=== PATIENT | male | born 1940 | race Caucasian/White ===

== ENCOUNTER 2019-05-06 15:11 | Inpatient (IN) | payer MEDICARE, BC ==
[~2019-05-06] VITALS: Ht 172.7 cm; Wt 84.4 kg
[2019-05-06 16:08] LABS: BASOPHILS % (AUTO) 0.4 % (0.0-2.0); EOSINOPHILS # (AUTO) 0.1 K/uL (0.0-0.7); HEMATOCRIT 35.9 % (36.7-47.1); HEMOGLOBIN 12.2 g/dL (12.5-16.3); LYMPHOCYTES # (AUTO) 0.6 K/uL (20.0-40.0); LYMPHOCYTES % (AUTO) 8.7 % (20.5-51.5); MEAN CORPUSCULAR HEMOGLOBIN 31.2 uug (23.8-33.4); MEAN CORPUSCULAR HGB CONC 34 g/dL (32.5-36.3); MEAN CORPUSCULAR VOLUME 92.2 fL (73.0-96.2); MONOCYTES # (AUTO) 0.5 K/uL (2.0-10.0); MONOCYTES % (AUTO) 6.7 % (0.0-11.0); NEUTROPHILS # (AUTO) 5.6 K/uL (1.8-8.9); NEUTROPHILS % (AUTO) 83.2 % (38.5-71.5); PLATELET COUNT (AUTO) 177 K/uL (152-348); WHITE BLOOD COUNT (AUTO) 6.7 K/uL (3.6-10.2)
[2019-05-06 16:19] LABS: CARBON DIOXIDE 30 mmol/L (21-32); CHLORIDE 103 mmol/L (98-107); CREATININE 1.9 mg/dL (0.6-1.3); GLUCOSE 249 mg/dL (74-106); POTASSIUM 4.3 mmol/L (3.5-5.1); UREA NITROGEN, BLOOD 37 mg/dL (7-18)
[2019-05-06 16:24] LABS: ALANINE AMINOTRANSFERASE 32 U/L (16-63); ALKALINE PHOSPHATASE 127 U/L (50-136); ASPARTATE AMINOTRANSFERASE 23 U/L (15-37); BILIRUBIN,DIRECT 0.2 mg/dL (0.0-0.2); BILIRUBIN,TOTAL 1.1 mg/dL (0.2-1.0); TOTAL PROTEIN, SERUM 7.4 g/dL (6.4-8.2)
[2019-05-06 16:32] LABS: THYROID STIMULATING HORMONE 2.125 mIU/mL (0.358-3.740)
[2019-05-06] MEDS ORDERED: LIDOCAINE 2% (UROJET) 10 ML JELLY MM ONE ×2 (16:48→17:15)
[2019-05-06 16:51] LABS: ETHANOL < 3 MG/DL (0-0)
[2019-05-06 17:09] LABS: *BILIRUBIN,URIN NEGATIVE (NEGATIVE); *BLOOD, URINE 1+ (NEGATIVE); *CLARITY,URINE CLEAR (CLEAR); *COLOR,URINE YELLOW (YELLOW); *KETONES,URINE NEGATIVE (NEGATIVE); *UROBILINOGEN,URINE 0.2 E.U./dl (NORMAL); LEUKOCYTE ESTERASE ,URINE NEGATIVE (NEGATIVE); NITRITE, URINE NEGATIVE (NEGATIVE); PH,URINE 5.5 (5.0-8.0); UGLUCOSE 2+ (NEGATIVE)
[2019-05-06] MEDS ORDERED: LEVOFLOXACIN 750 MG TABLET PO ONE (17:15)
[2019-05-06] MEDS ORDERED: IV NORMAL SALINE 1000 ML BAG IV ONE (17:15)
[2019-05-06 17:18] LABS: WBC,URINE 0-3 /HPF (0-3)
[2019-05-06 17:19] LABS: MUCUS,URINE FEW /LPF (0-FEW)
[2019-05-06 17:24] LABS: *AMPHETAMINE, URINE NEGATIVE (NEGATIVE); *BARBITURATE, URINE NEGATIVE (NEGATIVE)
[2019-05-06 17:25] LABS: *CANNABINOID, URINE NEGATIVE (NEGATIVE); *COCCAINE, URINE NEGATIVE (NEGATIVE); *OPIATE, URINE NEGATIVE (NEGATIVE); *PHENCYCLIDINE SCREEN,URINE NEGATIVE (NEGATIVE)
[2019-05-06] MEDS ORDERED: LEVOFLOXACIN 750 MG TABLET ONE (17:29)
[2019-05-06] MEDS ORDERED: MAG HYDROX/AL HYDROX/SIMETH 30 ML LIQUID UDC PO PRN (20:00)
[2019-05-06] MEDS ORDERED: LORAZEPAM 0.5 MG TABLET PO PRN ×2 (20:00→22:45)
[2019-05-06] MEDS ORDERED: BLOOD SUGAR DIAGNOSTIC 1 EACH STRIP VI ONE (20:00)
[2019-05-06] MEDS ORDERED: MAGNESIUM HYDROXIDE 30 ML LIQUID UDC PO PRN ×2 (20:00→21:15)
[2019-05-06] MEDS ORDERED: TEMAZEPAM 7.5 MG CAPSULE PO PRN (20:00)
[2019-05-06 20:30] VITALS: BP 117/52
[2019-05-06] MEDS ORDERED: INSULIN LISPRO 1000 UNITS/10 ML VIAL(HUMALOG) SQ SCH (21:15)
[2019-05-06] MEDS ORDERED: GLUCOSE ORAL GEL 15 GM TUBE PO PRN (22:15)
[2019-05-06] MEDS: ZOLPIDEM 5 MG TABLET PO PRN (23:10)
[2019-05-07] MEDS ORDERED: DEXTROSE 50% 50 ML DISP.SYRIN IV PRN ×2 (04:00→13:15)
[2019-05-07] MEDS: BLOOD SUGAR DIAGNOSTIC 1 EACH STRIP VI SCH ×4 (06:38→20:08)
[2019-05-07 07:30] VITALS: BP 147/78
[2019-05-07] MEDS: PIOGLITAZONE HCL 15 MG TABLET PO SCH (09:01)
[2019-05-07] MEDS: FINASTERIDE 5 MG TABLET PO SCH (09:01)
[2019-05-07] MEDS: GLIMEPIRIDE 2 MG TABLET PO SCH (09:01)
[2019-05-07] MEDS: APIXABAN 5 MG TABLET PO SCH ×2 (09:03→17:25)
[2019-05-07] MEDS: LOSARTAN POTASSIUM 25 MG TABLET PO SCH (09:03)
[2019-05-07] MEDS: INSULIN REGULAR, HUMAN 300 UNIT/3 ML VIAL SQ PRN ×3 (09:05→17:27)
[2019-05-07 09:28] LABS: ALANINE AMINOTRANSFERASE 28 U/L (16-63); ALKALINE PHOSPHATASE 126 U/L (50-136); ASPARTATE AMINOTRANSFERASE 20 U/L (15-37); BILIRUBIN,TOTAL 1.1 mg/dL (0.2-1.0); CARBON DIOXIDE 26 mmol/L (21-32); CHLORIDE 103 mmol/L (98-107); CREATININE 1.6 mg/dL (0.6-1.3); GLUCOSE 229 mg/dL (74-106); POTASSIUM 4.5 mmol/L (3.5-5.1); TOTAL PROTEIN, SERUM 7.6 g/dL (6.4-8.2); UREA NITROGEN, BLOOD 32 mg/dL (7-18)
[2019-05-07] MEDS: ESCITALOPRAM OXALATE 10 MG TABLET PO SCH (12:47)
[2019-05-07 16:00] VITALS: BP 122/58
[2019-05-07] MEDS: INSULIN REGULAR, HUMAN 300 UNITS/3 ML VIAL SQ PRN (20:10)
[2019-05-07] MEDS: QUETIAPINE FUMARATE 25 MG TABLET PO SCH (20:15)
[2019-05-07] MEDS: TAMSULOSIN HCL 0.4 MG CAP.SR.24H PO SCH (20:15)
[2019-05-07 21:28] VITALS: BP 139/64
[2019-05-08] MEDS: BLOOD SUGAR DIAGNOSTIC 1 EACH STRIP VI SCH ×4 (06:32→20:15)
[2019-05-08 07:30] VITALS: BP 119/64
[2019-05-08] MEDS: LOSARTAN POTASSIUM 25 MG TABLET PO SCH (09:00)
[2019-05-08] MEDS: PIOGLITAZONE HCL 15 MG TABLET PO SCH (09:22)
[2019-05-08] MEDS: FINASTERIDE 5 MG TABLET PO SCH (09:23)
[2019-05-08] MEDS: ESCITALOPRAM OXALATE 10 MG TABLET PO SCH (09:23)
[2019-05-08] MEDS: APIXABAN 5 MG TABLET PO SCH ×2 (09:27→17:40)
[2019-05-08] MEDS: GLIMEPIRIDE 2 MG TABLET PO SCH (09:30)
[2019-05-08] MEDS: INSULIN REGULAR, HUMAN 300 UNIT/3 ML VIAL SQ PRN ×3 (10:12→17:43)
[2019-05-08] MEDS ORDERED: DEXTROSE 50% 50 ML DISP.SYRIN IV PRN (12:30)
[2019-05-08] MEDS ORDERED: INSULIN REGULAR, HUMAN 300 UNIT/3 ML VIAL SQ PRN (12:30)
[2019-05-08] MEDS ORDERED: BLOOD SUGAR DIAGNOSTIC 1 EACH STRIP VI SCH (16:30)
[2019-05-08 16:43] VITALS: BP 136/48
[2019-05-08] MEDS: TAMSULOSIN HCL 0.4 MG CAP.SR.24H PO SCH (20:05)
[2019-05-08] MEDS: QUETIAPINE FUMARATE 25 MG TABLET PO SCH (20:05)
[2019-05-08] MEDS: INSULIN REGULAR, HUMAN 300 UNITS/3 ML VIAL SQ PRN (20:19)
[2019-05-08 21:09] VITALS: BP 139/54
[2019-05-08] MEDS: ZOLPIDEM 5 MG TABLET PO PRN (22:43)
[2019-05-08] MEDS: LORAZEPAM 1 MG TABLET PO PRN (23:56)
[2019-05-09] MEDS: BLOOD SUGAR DIAGNOSTIC 1 EACH STRIP VI SCH ×4 (06:31→21:01)
[2019-05-09 07:30] VITALS: BP 137/59
[2019-05-09 07:35] LABS: BASOPHILS % (AUTO) 0.4 % (0.0-2.0); EOSINOPHILS # (AUTO) 0.1 K/uL (0.0-0.7); EOSINOPHILS % (AUTO) 1.1 % (0.0-7.0); HEMATOCRIT 34.4 % (36.7-47.1); LYMPHOCYTES # (AUTO) 1.1 K/uL (20.0-40.0); LYMPHOCYTES % (AUTO) 14.9 % (20.5-51.5); MEAN CORPUSCULAR HEMOGLOBIN 31.9 uug (23.8-33.4); MEAN CORPUSCULAR HGB CONC 35 g/dL (32.5-36.3); MEAN CORPUSCULAR VOLUME 91.5 fL (73.0-96.2); MONOCYTES # (AUTO) 0.6 K/uL (2.0-10.0); MONOCYTES % (AUTO) 7.8 % (0.0-11.0); NEUTROPHILS # (AUTO) 5.5 K/uL (1.8-8.9); NEUTROPHILS % (AUTO) 75.8 % (38.5-71.5); PLATELET COUNT (AUTO) 177 K/uL (152-348); RED BLOOD CELL COUNT(AUTO) 3.76 MIL/uL (4.06-5.63); WHITE BLOOD COUNT (AUTO) 7.2 K/uL (3.6-10.2)
[2019-05-09] MEDS: LORAZEPAM 1 MG TABLET PO PRN (07:44)
[2019-05-09 07:46] LABS: ALANINE AMINOTRANSFERASE 29 U/L (16-63); ALKALINE PHOSPHATASE 131 U/L (50-136); ASPARTATE AMINOTRANSFERASE 23 U/L (15-37); BILIRUBIN,TOTAL 1.2 mg/dL (0.2-1.0); CARBON DIOXIDE 29 mmol/L (21-32); CHLORIDE 102 mmol/L (98-107); CREATINE KINASE, TOTAL 129 U/L (39-308); CREATININE 1.6 mg/dL (0.6-1.3); GLUCOSE 216 mg/dL (74-106); MAGNESIUM 1.8 mg/dL (1.8-2.4); POTASSIUM 4.3 mmol/L (3.5-5.1); TOTAL PROTEIN, SERUM 7.7 g/dL (6.4-8.2); UREA NITROGEN, BLOOD 32 mg/dL (7-18)
[2019-05-09] MEDS: GLIMEPIRIDE 2 MG TABLET PO SCH (07:50)
[2019-05-09] MEDS: PIOGLITAZONE HCL 15 MG TABLET PO SCH (08:37)
[2019-05-09] MEDS: ESCITALOPRAM OXALATE 10 MG TABLET PO SCH (08:37)
[2019-05-09] MEDS: FINASTERIDE 5 MG TABLET PO SCH (08:37)
[2019-05-09] MEDS: LOSARTAN POTASSIUM 25 MG TABLET PO SCH (08:38)
[2019-05-09] MEDS: APIXABAN 5 MG TABLET PO SCH ×2 (08:39→16:54)
[2019-05-09] MEDS: INSULIN REGULAR, HUMAN 300 UNIT/3 ML VIAL SQ PRN ×3 (08:44→16:57)
[2019-05-09 15:14] VITALS: BP 131/68
[2019-05-09 20:33] VITALS: BP 150/69
[2019-05-09] MEDS: QUETIAPINE FUMARATE 100 MG TABLET PO SCH (20:53)
[2019-05-09] MEDS: TAMSULOSIN HCL 0.4 MG CAP.SR.24H PO SCH (20:53)
[2019-05-09] MEDS ORDERED: QUETIAPINE FUMARATE 25 MG TABLET PO SCH (21:00)
[2019-05-09] MEDS: INSULIN REGULAR, HUMAN 300 UNITS/3 ML VIAL SQ PRN (21:06)
[2019-05-10] MEDS: BLOOD SUGAR DIAGNOSTIC 1 EACH STRIP VI SCH ×4 (06:40→20:43)
[2019-05-10 07:30] VITALS: BP 135/50
[2019-05-10] MEDS: INSULIN REGULAR, HUMAN 300 UNIT/3 ML VIAL SQ PRN ×3 (08:15→17:03)
[2019-05-10] MEDS: GLIMEPIRIDE 2 MG TABLET PO SCH (08:43)
[2019-05-10] MEDS: PIOGLITAZONE HCL 15 MG TABLET PO SCH (08:44)
[2019-05-10] MEDS: FINASTERIDE 5 MG TABLET PO SCH (08:44)
[2019-05-10] MEDS: APIXABAN 5 MG TABLET PO SCH ×2 (08:45→17:00)
[2019-05-10] MEDS: LOSARTAN POTASSIUM 25 MG TABLET PO SCH (08:48)
[2019-05-10] MEDS: ESCITALOPRAM OXALATE 10 MG TABLET PO SCH (08:49)
[2019-05-10 16:00] VITALS: BP 112/56
[2019-05-10] MEDS: TAMSULOSIN HCL 0.4 MG CAP.SR.24H PO SCH (20:28)
[2019-05-10] MEDS: QUETIAPINE FUMARATE 100 MG TABLET PO SCH (20:28)
[2019-05-10] MEDS: INSULIN REGULAR, HUMAN 300 UNITS/3 ML VIAL SQ PRN (20:50)
[2019-05-10 21:15] VITALS: BP 121/58
[2019-05-10 23:45] VITALS: BP 56/28
[2019-05-10 23:55] VITALS: BP 112/43
[2019-05-11] VITALS (7 sets, daily range): BP systolic 84–145; BP diastolic 30–58
[2019-05-11] MEDS: BLOOD SUGAR DIAGNOSTIC 1 EACH STRIP VI SCH ×4 (06:18→20:45)
[2019-05-11 08:43] LABS: BASOPHILS % (AUTO) 0.4 % (0.0-2.0); EOSINOPHILS # (AUTO) 0.1 K/uL (0.0-0.7); EOSINOPHILS % (AUTO) 0.9 % (0.0-7.0); HEMATOCRIT 30.8 % (36.7-47.1); HEMOGLOBIN 10.8 g/dL (12.5-16.3); LYMPHOCYTES # (AUTO) 0.9 K/uL (20.0-40.0); LYMPHOCYTES % (AUTO) 13.4 % (20.5-51.5); MEAN CORPUSCULAR HEMOGLOBIN 32.2 uug (23.8-33.4); MEAN CORPUSCULAR HGB CONC 35 g/dL (32.5-36.3); MEAN CORPUSCULAR VOLUME 91.8 fL (73.0-96.2); MONOCYTES # (AUTO) 0.5 K/uL (2.0-10.0); MONOCYTES % (AUTO) 7.7 % (0.0-11.0); NEUTROPHILS # (AUTO) 5.3 K/uL (1.8-8.9); NEUTROPHILS % (AUTO) 77.6 % (38.5-71.5); PLATELET COUNT (AUTO) 152 K/uL (152-348); RED BLOOD CELL COUNT(AUTO) 3.35 MIL/uL (4.06-5.63); WHITE BLOOD COUNT (AUTO) 6.8 K/uL (3.6-10.2)
[2019-05-11] MEDS: PIOGLITAZONE HCL 15 MG TABLET PO SCH (09:00)
[2019-05-11] MEDS: LOSARTAN POTASSIUM 25 MG TABLET PO SCH (09:00)
[2019-05-11] MEDS: GLIMEPIRIDE 2 MG TABLET PO SCH (09:01)
[2019-05-11] MEDS: ESCITALOPRAM OXALATE 10 MG TABLET PO SCH (09:01)
[2019-05-11] MEDS: FINASTERIDE 5 MG TABLET PO SCH (09:01)
[2019-05-11] MEDS: APIXABAN 5 MG TABLET PO SCH ×2 (09:03→17:31)
[2019-05-11 09:12] LABS: ALANINE AMINOTRANSFERASE 22 U/L (16-63); ALKALINE PHOSPHATASE 126 U/L (50-136); ASPARTATE AMINOTRANSFERASE 17 U/L (15-37); CARBON DIOXIDE 27 mmol/L (21-32); CHLORIDE 106 mmol/L (98-107); CREATININE 1.5 mg/dL (0.6-1.3); GLUCOSE 198 mg/dL (74-106); TOTAL PROTEIN, SERUM 6.9 g/dL (6.4-8.2); UREA NITROGEN, BLOOD 33 mg/dL (7-18)
[2019-05-11] MEDS: INSULIN REGULAR, HUMAN 300 UNIT/3 ML VIAL SQ PRN ×2 (09:12→12:02)
[2019-05-11] MEDS: TAMSULOSIN HCL 0.4 MG CAP.SR.24H PO SCH (20:30)
[2019-05-11] MEDS: QUETIAPINE FUMARATE 100 MG TABLET PO SCH ×2 (20:30→23:21)
[2019-05-11] MEDS: ACETAMINOPHEN 325 MG TABLET PO PRN (20:30)
[2019-05-11] MEDS: INSULIN REGULAR, HUMAN 300 UNITS/3 ML VIAL SQ PRN (20:51)
[2019-05-12] MEDS: BLOOD SUGAR DIAGNOSTIC 1 EACH STRIP VI SCH ×4 (06:28→20:30)
[2019-05-12 07:30] VITALS: BP 101/51
[2019-05-12] MEDS: PIOGLITAZONE HCL 15 MG TABLET PO SCH (08:50)
[2019-05-12] MEDS: GLIMEPIRIDE 2 MG TABLET PO SCH (08:50)
[2019-05-12] MEDS: FINASTERIDE 5 MG TABLET PO SCH (08:50)
[2019-05-12] MEDS: APIXABAN 5 MG TABLET PO SCH ×2 (08:51→16:26)
[2019-05-12] MEDS: ESCITALOPRAM OXALATE 10 MG TABLET PO SCH (08:51)
[2019-05-12] MEDS: INSULIN REGULAR, HUMAN 300 UNIT/3 ML VIAL SQ PRN ×4 (09:58→16:39)
[2019-05-12 14:09] LABS: A/G RATIO 1.1 (0.7-1.7); ALBUMIN 3.7 g/dL (2.9-4.4); ALPHA-1-GLOBULIN 0.3 g/dL (0.0-0.4); BETA GLOBULIN 1.1 g/dL (0.7-1.3); GAMMA GLOBULIN 1.2 g/dL (0.4-1.8); GLOBULIN, TOTAL 3.5 g/dL (2.2-3.9); M-SPIKE 0.4 g/dL (Not Observed)
[2019-05-12 15:10] LABS: *BILIRUBIN,URIN NEGATIVE (NEGATIVE); *BLOOD, URINE NEGATIVE (NEGATIVE); *CLARITY,URINE CLEAR (CLEAR); *COLOR,URINE YELLOW (YELLOW); *KETONES,URINE NEGATIVE (NEGATIVE); *UROBILINOGEN,URINE 0.2 E.U./dl (NORMAL); LEUKOCYTE ESTERASE ,URINE NEGATIVE (NEGATIVE); NITRITE, URINE NEGATIVE (NEGATIVE); PH,URINE 5.5 (5.0-8.0)
[2019-05-12 15:13] LABS: UGLUCOSE 1+ (NEGATIVE)
[2019-05-12 15:21] LABS: BACTERIA,URINE NONE SEEN /HPF (NONE SEEN); RBC,URINE 0-3 /HPF (0-3); WBC,URINE 0-3 /HPF (0-3)
[2019-05-12 15:23] LABS: SQUAMOUS EPITHELIAL CELL,UR NONE SEEN /HPF (NONE SEEN)
[2019-05-12 15:24] VITALS: BP 112/55
[2019-05-12 15:24] LABS: MUCUS,URINE FEW /LPF (0-FEW); URINE AMORPHOUS URATE FEW /HPF
[2019-05-12 20:00] VITALS: BP 164/55
[2019-05-12] MEDS: QUETIAPINE FUMARATE 100 MG TABLET PO SCH (20:18)
[2019-05-12] MEDS: TAMSULOSIN HCL 0.4 MG CAP.SR.24H PO SCH (20:18)
[2019-05-12] MEDS: MEMANTINE HCL 5 MG TABLET PO SCH (20:19)
[2019-05-12] MEDS: INSULIN REGULAR, HUMAN 300 UNITS/3 ML VIAL SQ PRN (20:32)
[2019-05-12] MEDS: ZOLPIDEM 5 MG TABLET PO PRN (22:24)
[2019-05-12] MEDS: ACETAMINOPHEN 325 MG TABLET PO PRN (22:24)
[2019-05-13] MEDS: BLOOD SUGAR DIAGNOSTIC 1 EACH STRIP VI SCH ×4 (06:24→20:21)
[2019-05-13 07:30] VITALS: BP 152/64
[2019-05-13] MEDS: PIOGLITAZONE HCL 15 MG TABLET PO SCH (09:06)
[2019-05-13] MEDS: ESCITALOPRAM OXALATE 10 MG TABLET PO SCH (09:06)
[2019-05-13] MEDS: GLIMEPIRIDE 2 MG TABLET PO SCH (09:06)
[2019-05-13] MEDS: FINASTERIDE 5 MG TABLET PO SCH (09:06)
[2019-05-13] MEDS: APIXABAN 5 MG TABLET PO SCH ×2 (09:07→16:29)
[2019-05-13] MEDS: INSULIN REGULAR, HUMAN 300 UNIT/3 ML VIAL SQ PRN ×3 (09:08→16:39)
[2019-05-13 16:00] VITALS: BP 121/58
[2019-05-13 20:00] VITALS: BP 147/52
[2019-05-13] MEDS: TAMSULOSIN HCL 0.4 MG CAP.SR.24H PO SCH (20:31)
[2019-05-13] MEDS: MEMANTINE HCL 5 MG TABLET PO SCH (20:31)
[2019-05-13] MEDS: QUETIAPINE FUMARATE 100 MG TABLET PO SCH (20:32)
[2019-05-13] MEDS: INSULIN REGULAR, HUMAN 300 UNITS/3 ML VIAL SQ PRN (20:35)
[2019-05-14 07:30] VITALS: BP 130/52
[2019-05-14 07:39] LABS: BASOPHILS % (AUTO) 0.7 % (0.0-2.0); EOSINOPHILS # (AUTO) 0.1 K/uL (0.0-0.7); EOSINOPHILS % (AUTO) 2.7 % (0.0-7.0); HEMATOCRIT 28.4 % (36.7-47.1); HEMOGLOBIN 9.7 g/dL (12.5-16.3); LYMPHOCYTES % (AUTO) 22.9 % (20.5-51.5); MEAN CORPUSCULAR HEMOGLOBIN 31.3 uug (23.8-33.4); MEAN CORPUSCULAR HGB CONC 34 g/dL (32.5-36.3); MEAN CORPUSCULAR VOLUME 91.7 fL (73.0-96.2); MONOCYTES # (AUTO) 0.4 K/uL (2.0-10.0); MONOCYTES % (AUTO) 9.3 % (0.0-11.0); NEUTROPHILS # (AUTO) 2.7 K/uL (1.8-8.9); NEUTROPHILS % (AUTO) 64.4 % (38.5-71.5); PLATELET COUNT (AUTO) 149 K/uL (152-348); WHITE BLOOD COUNT (AUTO) 4.3 K/uL (3.6-10.2)
[2019-05-14] MEDS: BLOOD SUGAR DIAGNOSTIC 1 EACH STRIP VI SCH ×4 (07:40→20:05)
[2019-05-14 07:52] LABS: CARBON DIOXIDE 30 mmol/L (21-32); CHLORIDE 106 mmol/L (98-107); CREATININE 1.4 mg/dL (0.6-1.3); GLUCOSE 153 mg/dL (74-106); MAGNESIUM 2.1 mg/dL (1.8-2.4); POTASSIUM 4.2 mmol/L (3.5-5.1); UREA NITROGEN, BLOOD 32 mg/dL (7-18)
[2019-05-14] MEDS: FINASTERIDE 5 MG TABLET PO SCH (08:21)
[2019-05-14] MEDS: GLIMEPIRIDE 2 MG TABLET PO SCH (08:21)
[2019-05-14] MEDS: ESCITALOPRAM OXALATE 10 MG TABLET PO SCH (08:21)
[2019-05-14] MEDS: APIXABAN 5 MG TABLET PO SCH ×2 (08:23→16:59)
[2019-05-14] MEDS: PIOGLITAZONE HCL 15 MG TABLET PO SCH (08:25)
[2019-05-14] MEDS: INSULIN REGULAR, HUMAN 300 UNIT/3 ML VIAL SQ PRN ×3 (09:54→17:39)
[2019-05-14 16:00] VITALS: BP 115/47
[2019-05-14 20:00] VITALS: BP 130/58
[2019-05-14] MEDS: MEMANTINE HCL 5 MG TABLET PO SCH (20:05)
[2019-05-14] MEDS: QUETIAPINE FUMARATE 200 MG TABLET PO SCH (20:05)
[2019-05-14] MEDS: TAMSULOSIN HCL 0.4 MG CAP.SR.24H PO SCH (20:05)
[2019-05-14] MEDS: INSULIN REGULAR, HUMAN 300 UNITS/3 ML VIAL SQ PRN (20:07)
[2019-05-14] MEDS ORDERED: QUETIAPINE FUMARATE 100 MG TABLET PO SCH (21:00)
[2019-05-15] MEDS: BLOOD SUGAR DIAGNOSTIC 1 EACH STRIP VI SCH ×4 (06:45→20:18)
[2019-05-15 07:30] VITALS: BP 130/59
[2019-05-15] MEDS: GLIMEPIRIDE 2 MG TABLET PO SCH (07:36)
[2019-05-15] MEDS: FINASTERIDE 5 MG TABLET PO SCH (08:00)
[2019-05-15] MEDS: PIOGLITAZONE HCL 15 MG TABLET PO SCH (08:01)
[2019-05-15] MEDS: APIXABAN 5 MG TABLET PO SCH ×2 (08:02→17:13)
[2019-05-15] MEDS: INSULIN REGULAR, HUMAN 300 UNIT/3 ML VIAL SQ PRN ×3 (08:06→17:08)
[2019-05-15] MEDS: ESCITALOPRAM OXALATE 10 MG TABLET PO SCH (08:09)
[2019-05-15 16:00] VITALS: BP 126/45
[2019-05-15] MEDS: QUETIAPINE FUMARATE 200 MG TABLET PO SCH (20:15)
[2019-05-15] MEDS: MEMANTINE HCL 5 MG TABLET PO SCH (20:15)
[2019-05-15] MEDS: TAMSULOSIN HCL 0.4 MG CAP.SR.24H PO SCH (20:15)
[2019-05-15 20:49] VITALS: BP_SYST 99
[2019-05-15] MEDS: ZOLPIDEM 5 MG TABLET PO PRN (22:25)
[2019-05-16] MEDS: BLOOD SUGAR DIAGNOSTIC 1 EACH STRIP VI SCH ×4 (06:31→20:28)
[2019-05-16] MEDS: GLIMEPIRIDE 2 MG TABLET PO SCH (06:32)
[2019-05-16 07:30] VITALS: BP 148/74
[2019-05-16] MEDS: INSULIN REGULAR, HUMAN 300 UNIT/3 ML VIAL SQ PRN ×3 (07:33→17:07)
[2019-05-16] MEDS: ESCITALOPRAM OXALATE 10 MG TABLET PO SCH (08:16)
[2019-05-16] MEDS: PIOGLITAZONE HCL 15 MG TABLET PO SCH (08:16)
[2019-05-16] MEDS: APIXABAN 5 MG TABLET PO SCH ×2 (08:16→17:06)
[2019-05-16] MEDS: FINASTERIDE 5 MG TABLET PO SCH (08:16)
[2019-05-16 16:00] VITALS: BP 123/57
[2019-05-16 19:46] VITALS: BP 147/56
[2019-05-16] MEDS: MEMANTINE HCL 5 MG TABLET PO SCH (20:27)
[2019-05-16] MEDS: TAMSULOSIN HCL 0.4 MG CAP.SR.24H PO SCH (20:28)
[2019-05-16] MEDS: QUETIAPINE FUMARATE 200 MG TABLET PO SCH (20:28)
[2019-05-16] MEDS: INSULIN REGULAR, HUMAN 300 UNITS/3 ML VIAL SQ PRN (20:30)
[2019-05-17] MEDS: BLOOD SUGAR DIAGNOSTIC 1 EACH STRIP VI SCH ×4 (06:55→20:45)
[2019-05-17 07:30] VITALS: BP 120/70
[2019-05-17] MEDS: INSULIN REGULAR, HUMAN 300 UNIT/3 ML VIAL SQ PRN ×3 (08:14→17:10)
[2019-05-17] MEDS: GLIMEPIRIDE 2 MG TABLET PO SCH (08:57)
[2019-05-17] MEDS: PIOGLITAZONE HCL 15 MG TABLET PO SCH (08:57)
[2019-05-17] MEDS: FINASTERIDE 5 MG TABLET PO SCH (08:57)
[2019-05-17] MEDS: APIXABAN 5 MG TABLET PO SCH ×2 (08:59→17:15)
[2019-05-17] MEDS: ESCITALOPRAM OXALATE 10 MG TABLET PO SCH (09:05)
[2019-05-17 16:00] VITALS: BP 131/50
[2019-05-17 20:04] VITALS: BP 149/68
[2019-05-17] MEDS: TAMSULOSIN HCL 0.4 MG CAP.SR.24H PO SCH (20:44)
[2019-05-17] MEDS: QUETIAPINE FUMARATE 200 MG TABLET PO SCH (20:45)
[2019-05-17] MEDS: MEMANTINE HCL 5 MG TABLET PO SCH (20:45)
[2019-05-17] MEDS: INSULIN REGULAR, HUMAN 300 UNITS/3 ML VIAL SQ PRN (20:46)
[2019-05-18] MEDS: BLOOD SUGAR DIAGNOSTIC 1 EACH STRIP VI SCH ×4 (06:56→20:12)
[2019-05-18 06:57] LABS: BASOPHILS % (AUTO) 0.6 % (0.0-2.0); EOSINOPHILS # (AUTO) 0.1 K/uL (0.0-0.7); EOSINOPHILS % (AUTO) 2.5 % (0.0-7.0); HEMATOCRIT 30.9 % (36.7-47.1); HEMOGLOBIN 10.7 g/dL (12.5-16.3); LYMPHOCYTES # (AUTO) 1.2 K/uL (20.0-40.0); LYMPHOCYTES % (AUTO) 21.7 % (20.5-51.5); MEAN CORPUSCULAR HEMOGLOBIN 31.8 uug (23.8-33.4); MEAN CORPUSCULAR HGB CONC 35 g/dL (32.5-36.3); MEAN CORPUSCULAR VOLUME 92.2 fL (73.0-96.2); MONOCYTES # (AUTO) 0.4 K/uL (2.0-10.0); MONOCYTES % (AUTO) 7.9 % (0.0-11.0); NEUTROPHILS # (AUTO) 3.8 K/uL (1.8-8.9); NEUTROPHILS % (AUTO) 67.3 % (38.5-71.5); PLATELET COUNT (AUTO) 194 K/uL (152-348); RED BLOOD CELL COUNT(AUTO) 3.35 MIL/uL (4.06-5.63); WHITE BLOOD COUNT (AUTO) 5.6 K/uL (3.6-10.2)
[2019-05-18 07:04] LABS: CARBON DIOXIDE 29 mmol/L (21-32); CHLORIDE 105 mmol/L (98-107); CREATININE 1.4 mg/dL (0.6-1.3); GLUCOSE 163 mg/dL (74-106); MAGNESIUM 2.2 mg/dL (1.8-2.4); PHOSPHOROUS 3.4 mg/dL (2.5-4.9); UREA NITROGEN, BLOOD 28 mg/dL (7-18)
[2019-05-18 07:30] VITALS: BP 137/56
[2019-05-18] MEDS: INSULIN REGULAR, HUMAN 300 UNIT/3 ML VIAL SQ PRN ×3 (07:44→16:34)
[2019-05-18] MEDS: FINASTERIDE 5 MG TABLET PO SCH (08:06)
[2019-05-18] MEDS: GLIMEPIRIDE 2 MG TABLET PO SCH (08:06)
[2019-05-18] MEDS: ESCITALOPRAM OXALATE 10 MG TABLET PO SCH (08:06)
[2019-05-18] MEDS: PIOGLITAZONE HCL 15 MG TABLET PO SCH (08:06)
[2019-05-18] MEDS: APIXABAN 5 MG TABLET PO SCH ×2 (08:12→16:33)
[2019-05-18 16:17] VITALS: BP 149/59
[2019-05-18 20:00] VITALS: BP 156/69
[2019-05-18] MEDS: TAMSULOSIN HCL 0.4 MG CAP.SR.24H PO SCH (20:02)
[2019-05-18] MEDS: QUETIAPINE FUMARATE 200 MG TABLET PO SCH (20:02)
[2019-05-18] MEDS: MEMANTINE HCL 5 MG TABLET PO SCH (20:02)
[2019-05-18] MEDS: INSULIN REGULAR, HUMAN 300 UNITS/3 ML VIAL SQ PRN (20:16)
[2019-05-19] MEDS: BLOOD SUGAR DIAGNOSTIC 1 EACH STRIP VI SCH ×4 (06:32→20:10)
[2019-05-19 07:13] LABS: CARBON DIOXIDE 31 mmol/L (21-32); CHLORIDE 107 mmol/L (98-107); CREATININE 1.4 mg/dL (0.6-1.3); GLUCOSE 141 mg/dL (74-106); POTASSIUM 3.9 mmol/L (3.5-5.1); UREA NITROGEN, BLOOD 28 mg/dL (7-18)
[2019-05-19 07:30] VITALS: BP 114/44
[2019-05-19] MEDS: GLIMEPIRIDE 2 MG TABLET PO SCH (07:39)
[2019-05-19] MEDS: FUROSEMIDE 40 MG TABLET PO SCH (08:11)
[2019-05-19] MEDS: APIXABAN 5 MG TABLET PO SCH ×2 (08:11→17:11)
[2019-05-19] MEDS: ESCITALOPRAM OXALATE 10 MG TABLET PO SCH (08:11)
[2019-05-19] MEDS: PIOGLITAZONE HCL 15 MG TABLET PO SCH (08:11)
[2019-05-19] MEDS: FINASTERIDE 5 MG TABLET PO SCH (08:11)
[2019-05-19] MEDS: INSULIN REGULAR, HUMAN 300 UNIT/3 ML VIAL SQ PRN ×2 (08:15→12:29)
[2019-05-19 15:36] VITALS: BP 100/50
[2019-05-19 20:00] VITALS: BP 125/61
[2019-05-19] MEDS: QUETIAPINE FUMARATE 200 MG TABLET PO SCH (20:04)
[2019-05-19] MEDS: TAMSULOSIN HCL 0.4 MG CAP.SR.24H PO SCH (20:04)
[2019-05-19] MEDS: MEMANTINE HCL 5 MG TABLET PO SCH (20:04)
[2019-05-19] MEDS: INSULIN REGULAR, HUMAN 300 UNITS/3 ML VIAL SQ PRN (20:12)
[2019-05-20] MEDS: BLOOD SUGAR DIAGNOSTIC 1 EACH STRIP VI SCH (06:32)
[2019-05-20 07:09] LABS: BASOPHILS % (AUTO) 0.7 % (0.0-2.0); EOSINOPHILS # (AUTO) 0.1 K/uL (0.0-0.7); EOSINOPHILS % (AUTO) 2.5 % (0.0-7.0); HEMATOCRIT 28.4 % (36.7-47.1); HEMOGLOBIN 9.9 g/dL (12.5-16.3); LYMPHOCYTES # (AUTO) 0.9 K/uL (20.0-40.0); LYMPHOCYTES % (AUTO) 19.8 % (20.5-51.5); MEAN CORPUSCULAR HEMOGLOBIN 32.2 uug (23.8-33.4); MEAN CORPUSCULAR HGB CONC 35 g/dL (32.5-36.3); MEAN CORPUSCULAR VOLUME 91.8 fL (73.0-96.2); MONOCYTES # (AUTO) 0.4 K/uL (2.0-10.0); PLATELET COUNT (AUTO) 150 K/uL (152-348); RED BLOOD CELL COUNT(AUTO) 3.09 MIL/uL (4.06-5.63); WHITE BLOOD COUNT (AUTO) 4.4 K/uL (3.6-10.2)
[2019-05-20] MEDS ORDERED: GLIMEPIRIDE 2 MG TABLET PO SCH (07:30)
[2019-05-20] MEDS ORDERED: GLIMEPIRIDE 4 MG TABLET PO SCH (07:30)
[2019-05-20 07:31] LABS: CARBON DIOXIDE 30 mmol/L (21-32); CHLORIDE 106 mmol/L (98-107); CREATININE 1.4 mg/dL (0.6-1.3); GLUCOSE 154 mg/dL (74-106); MAGNESIUM 2.1 mg/dL (1.8-2.4); PHOSPHOROUS 3.4 mg/dL (2.5-4.9); POTASSIUM 3.8 mmol/L (3.5-5.1); UREA NITROGEN, BLOOD 29 mg/dL (7-18)
[2019-05-20 07:46] VITALS: BP 148/62
[2019-05-20] MEDS: ESCITALOPRAM OXALATE 10 MG TABLET PO SCH (08:04)
[2019-05-20] MEDS: PIOGLITAZONE HCL 15 MG TABLET PO SCH (08:04)
[2019-05-20] MEDS: FINASTERIDE 5 MG TABLET PO SCH (08:04)
[2019-05-20] MEDS: FUROSEMIDE 40 MG TABLET PO SCH (08:04)
[2019-05-20] MEDS: APIXABAN 5 MG TABLET PO SCH (08:05)
== END 2019-05-20 11:20 | DRG 885 ==
LOC: ER 15:14 → GPS 19:49
PROVIDERS: ADMIT Psychiatry & Neurology Psychiatry; ATTEND Registered Nurse
DX: F33.3 Major depressive disorder, recurrent, severe with psychotic symptoms (principal); N17.9 Acute kidney failure, unspecified; N18.9 Chronic kidney disease, unspecified; E11.65 Type 2 diabetes mellitus with hyperglycemia; I82.419 Acute embolism and thrombosis of unspecified femoral vein; I82.439 Acute embolism and thrombosis of unspecified popliteal vein; F03.91 Unspecified dementia, unspecified severity, with behavioral disturbance; E44.1 Mild protein-calorie malnutrition; E78.5 Hyperlipidemia, unspecified; E86.0 Dehydration; E11.22 Type 2 diabetes mellitus with diabetic chronic kidney disease; I12.9 Hypertensive chronic kidney disease with stage 1 through stage 4 chronic kidney disease, or unspecified chronic kidney disease; E78.00 Pure hypercholesterolemia, unspecified; J45.909 Unspecified asthma, uncomplicated; N40.0 Benign prostatic hyperplasia without lower urinary tract symptoms; Z87.11 Personal history of peptic ulcer disease; Z79.899 Other long term (current) drug therapy; Z66 Do not resuscitate
CPT/HCPCS: 36415; 70030-TC; 70450; 71045; 71046; 80307; 83735; 83970; 84100; 84155; 84165; 84443; 85025; 85730; 87086; 93005; A4663; C1758; G0480; J1815; J7030